=== PATIENT | male | born 1985 | race African-American/Black ===

== ENCOUNTER 2025-08-25 01:57 | Inpatient (IN) | payer OTHER, SELFPAY ==
[2025-08-24 23:00] VITALS: BMI 24.4
[2025-08-24 23:01] VITALS: BP 175/107
[2025-08-24 23:05] VITALS: BP 163/105
[2025-08-24] MEDS: NSS 1000 IV (23:23)
[2025-08-24 23:30] LABS: Hematocrit 32.5 % (39.0-52.0); Hemoglobin 9.9 g/dL (13.0-18.0); Mean Corp Hgb Conc. 30.5 g/dL (33.0-37.0); Mean Corpuscular Volume 79.7 fL (80.0-94.0); Platelet Count 309 10^3/uL (130-400); Red Cell Dist. Width 15.9 % (11.5-14.5)
[2025-08-24 23:32] LABS: INR 1.30; PT 16.3 Sec (11.4-14.6)
[2025-08-24 23:40] LABS: B.E. 8.2 mmol/L; HCO3 34.5 mmol/L (21-28); O2 Saturation % 98.4 % (94-98); PCO2 57 mmHg (35-48); PO2 85 mmHg (83-108)
[2025-08-24 23:43] LABS: COVID-19 Antigen Negative (Negative)
[2025-08-24 23:50] LABS: ALT (SGPT) 15 U/L (0-50); AST (SGOT) 25 U/L (17-59); Albumin 4.1 g/dl (3.5-5.0); Alkaline Phosphatase 79 U/L (38-126); Blood Urea Nitrogen 18 mg/dl (9-20); Calcium 8.8 mg/dl (8.4-10.2); Carbon Dioxide 33 mmol/L (22-30); Chloride 94 mmol/L (98-107); Estimated Creatinine Clearance 80 ml/min; Glucose 113 mg/dl (70-99); Potassium 4.3 mmol/L (3.5-5.1); Sodium 135 mmol/L (135-145); Total Protein 7.6 g/dl (6.3-8.2); eGFR > 60.00
[2025-08-25] VITALS (8 sets, daily range): BP systolic 145–171; BP diastolic 86–111; PULSE 99; O2SAT 96; BMI 23.7
[2025-08-25 00:04] LABS: Troponin I 0.036 ng/ml
[2025-08-25 00:14] LABS: Absolute Neutrophils -Man Diff 12.0 10^3/uL (1.4-6.5); Platelets Checked Yes
[2025-08-25 00:15] LABS: Normal RBC Morphology Yes
[2025-08-25 00:17] LABS: Total Cells Counted 100
--- NOTE | 2025-08-25 00:49 | ED.GENMED ---
History of Present Illness
General
Chief Complaint: Breathing Problem
Source: patient, ambulance crew and police
Exam Limitations: clinical condition
Time Seen by Provider: 08/24/25 22:48
Nursing documentation reviewed up to this point in time: agreed with
History of Present Illness
History of Present Illness:
Note:
CHIEF COMPLAINT(S)
Shortness of breath.
HISTORY OF PRESENT ILLNESS
The patient is a 40-year-old male who presents with acute onset shortness of breath and symptoms consistent with a cold. He states, 'I cant breathe' and reports feeling short of breath more prominently when lying down but experiences some relief
upon sitting up. The patient also reports a new onset fever today. He describes a sensation of heaviness in his chest when supine, impacting his ability to breathe comfortably. The patient mentions that these symptoms began today, and this is his
first experience of such symptoms. He denies any prior history of congestive heart failure.
SOCIAL HISTORY
The patient admits to smoking intermittently and states, 'I just started dying,' suggestive of intensified or resumed smoking habit recently.
PHYSICAL EXAM
General: Alert, appears in mild distress due to breathing difficulty.
Skin: Warm, dry.
Head: Normocephalic, atraumatic.
Neck: Supple, trachea midline.
Ear Ears, Nose, Mouth, and Throat: Oral mucosa moist.
Cardiovascular: Normal peripheral perfusion, no edema.
Respiratory: Breathing appears labored, and the patient reports shortness of breath especially in supine position.
Gastrointestinal: Abdomen nondistended.
Back: Normal range of motion, normal alignment.
Musculoskeletal: Normal range of motion, normal strength.
Neurological: Alert and oriented to person, place, time, and situation, no focal neurological deficit observed.
Psychiatric: Cooperative, appropriate mood and affect.
PLAN
- Administer breathing treatment to alleviate dyspnea.
- Conduct blood work to assess potential underlying causes.
- Arrange for a computed tomography (CT) scan of the chest to evaluate for possible respiratory pathology.
DIFFERENTIAL DIAGNOSIS
The Differential Diagnosis includes, in no particular order and is not limited to:
- Acute bronchitis
- Pneumonia
- Chronic obstructive pulmonary disease exacerbation
- Pulmonary embolism
- Asthma exacerbation
- Congestive heart failure (although the patient denies a history)
- Pleural effusion
- Pneumothorax
- Viral upper respiratory infection
- Hypersensitivity pneumonitis
Disposition:
SUMMARY OF ENCOUNTER
The patient, a 40-year-old male, was brought in by [employer] after being arraigned for a shoplifting charge. Upon arrival at the longterm, he was found to be hypoxic, with an oxygen saturation below 80% on room air, prompting the [facility] nurses
recommendation for hospital evaluation. Upon arrival at the emergency department, the patients oxygen saturation was improved to 96% with two liters of supplemental oxygen. The patient presented with a low-grade fever, expiratory wheezes, and
clubbed hands. He has a history of smoking, having quit for six years before recently resuming. A CT pulmonary embolism study was conducted, showing tree-in-bud patterns, centrilobular nodular and confluent opacities throughout the lower half of the
lungs, most prominently in the bilateral lower lobes, and findings consistent with multilobar pneumonia or aspiration. No pulmonary embolism was observed. The patient was admitted to the hospitalist service, initiated on antibiotics with Unasyn
(ampicillin/sulbactam), and provided fluids. Coordination with legal authorities is underway to potentially release the patient on his own recognizance during his hospital stay.
DISPOSITION
Admit to the hospitalist service.
ASSESSMENT
The patient presents with severe hypoxia likely due to multilobar pneumonia or aspiration. Other findings include expiratory wheezes and a history of smoking, suggesting possible chronic respiratory conditions.
EMERGENCY TREATMENTS ADMINISTERED
Supplemental oxygen therapy.
PLAN
Admit to the hospitalist service for further management and monitoring. Continue antibiotic therapy with Unasyn and provide supportive care, including fluids.
INDEPENDENT REVIEW OF LABS AND INTERPRETATION OF TESTS
My independent interpretation of the CT pulmonary embolism study shows tree-in-bud patterns, centrilobular nodular and confluent opacities throughout the lower lungs, most notably in the bilateral lower lobes, indicating multilobar pneumonia or
possible aspiration. No evidence of pulmonary embolism was detected.
MEDICATION RECONCILIATION
Unasyn (ampicillin/sulbactam) started for antibiotic therapy.
MEDICAL DECISION MAKING
-Complexity of Data Reviewed:
Chronic conditions affecting care include a history of intermittent smoking. Differential diagnosis includes acute bronchitis, pneumonia, chronic obstructive pulmonary disease exacerbation, pulmonary embolism, asthma exacerbation, congestive heart
failure, pleural effusion, pneumothorax, viral upper respiratory infection, hypersensitivity pneumonitis.
-Data:
Category 1:
CT pulmonary embolism study conducted and independently interpreted, revealing multilobar pneumonia or aspiration findings.
-Risk:
The admission decision is based on the need for escalation of care due to the patients severe hypoxia and pneumonia findings.
DIAGNOSIS
- Multilobar pneumonia, unspecified organism (J18.9)
- Acute hypoxia (R09.02)
Phy Exam
Physical Exam
Physical Exam:
.
Sepsis
Sepsis Screening
Sepsis Assessment: Sepsis
Sepsis Screen
Sepsis Screen: Sepsis
Date: 08/25/25
Time: 00:59
Course
Orders/Labs/Results
Orders:
Orders
08/24/25 23:03
Cardiac Monitoring- Treatment ONCE
0.9% Sodium Chloride 1000 ml [Nss] 1,000 ml IV BOLUS
08/24/25 23:04
Electrocardiogram (*1) Stat
Reason for Study: Other
Other Reason for Exam: pneumonia
EKG- Treatment ONCE
08/24/25 23:13
Lactic Acid Q4H
Comment: CANCEL 2nd LACTIC ACID IF 1st LACTIC ACID IS LESS THAN 2
08/24/25 23:14
COVID-19 Antigen Urgent
Source: Nasal Swab
Complete Blood Count/With Diff Urgent
Comprehensive Metabolic Panel Urgent
Manual Differential Urgent
NT-proBNP Urgent
Prothrombin Time Urgent
Troponin I Urgent
Blood Culture Q30M
KAY Source: Blood/Venous
Specimen Description:
Blood Culture Q30M
KAY Source: Blood/Venous
Specimen Description:
Influenza A+B Rapid Molecular Urgent
KAY Source: Nasal Swab
Specimen Description:
08/24/25 23:32
Arterial Blood Gas Urgent
%Oxygen/Room Air: 2l
08/25/25 00:00
CT Chest PE Study Urgent
Reason For Exam: dyspnea/tachycardia
Abnormal Lab Results
08/24/25 08/24/25
23:14 23:32
WBC 15.2 H 10^3/uL
(4.8-10.8)
RBC 4.08 L 10^6/uL
(4.70-6.10)
Hgb 9.9 L g/dL
(13.0-18.0)
Hct 32.5 L %
(39.0-52.0)
MCV 79.7 L fL
(80.0-94.0)
MCH 24.3 L pg
(27.0-31.0)
MCHC 30.5 L g/dL
(33.0-37.0)
RDW 15.9 H %
(11.5-14.5)
Abs Neuts (Manual) 12.0 H 10^3/uL
(1.4-6.5)
Band Neutrophils 15 H %
(0-3)
Lymphocytes (Manual) 10 L %
(20-51)
PT 16.3 H Sec
(11.4-14.6)
pCO2 57 H mmHg
(35-48)
HCO3 34.5 H mmol/L
(21-28)
ABG O2 Sat (Measured) 98.4 H %
(94-98)
Chloride 94 L mmol/L
(98-107)
Carbon Dioxide 33 H mmol/L
(22-30)
Glucose 113 H mg/dl
(70-99)
Troponin I 0.036 H* ng/ml
08/24/25 23:14
08/24/25 23:14
Vital Signs
Initial and Last Documented VS:
Initial Vital Signs
Pulse Resp Pulse Ox
119 12 91
08/24/25 22:59 08/24/25 22:59 08/24/25 22:59
Last Documented Vital Signs
Temp Pulse Resp BP Pulse Ox
100.5 F H 115 13 161/108 97
08/24/25 23:01 08/25/25 00:15 08/25/25 00:15 08/25/25 00:11 08/25/25 00:15
*Pulse Oximetry
SaO2: 97
Oxygen Mode of Delivery: Room air
Patient hypoxic: no
*Critical Care Note
Total Time (30-74mins, 75-104mins- exclusive of procedures): 33 (Critical care statement: A total of 33 minutes of critical care time was provided for this patient. This time is separate from time utilized to perform the aforementioned documented
procedures. Aggregate critical care time includes only time during which I was engaged in work directl)
Update Note
Update Note:
NAME: SARAH UNGER
DATE OF EXAM: 08/25/2025
Patient No: [id number]
Physician: DANICA
Date of : 1985
Past Medical History (entered by Technologist):
Reason For Exam (entered by Technologist):
Other Notes (entered by Technologist): Low pulse ox. On arrival, pt states that he can't breathe, pt on room air, SaO2 81% on room air
No prior
Additional Information (per [facility] Radiologist):
CT chest with IV contrast, angiogram
IMPRESSION:
Extensive tree-in-bud and centrilobular nodular and confluent opacities throughout the lower half of the lungs, most prominent in bilateral lower lobes, reflecting multilobar pneumonia or aspiration. Right middle lobe bronchiectasis. Diffuse
bronchial wall thickening with scattered areas of mucous plugging especially in the lower lobes and lingula.
Mildly enlarged reactive mediastinal and hilar lymph nodes.
Motion artifact limits evaluation of mid distal segmental and subsegmental pulmonary arteries especially in the lower lungs. Cannot exclude PE at those levels. No central, lobar, or gross segmental PE.
No aortic dissection.
Case finalized on 08/25/25 00:19 EST
Soniod Mendoza MD
This report has been electronically signed and verified by the Radiologist whose name is printed above.
ED Attending Note
-
Portions of this chart may have been created with voice recognition software.� Occasional wrong word or��sound alike� substitutions may have occurred due to the inherent limitations of voice recognition software.
Discharge Plan
Departure
Patient Disposition: Admit
Date of Disposition: 08/25/25
Time of Disposition: 00:56
Admit to: ICU
Presentation/result/management discussed w/ accepting MD/DO: Hospitalist
Discharge Problem:
Multilobar pneumonia, Elevated troponin, Health examination of prisoner
Referrals:
[facility] [Family Provider, General]
Interventions
Interventions:
*Risk Screen - Suicide Last Done: 08/24/25 23:00
*General Assessment Last Done: 08/24/25 23:01
*Neglect/Abuse Screening Last Done: 08/24/25 23:00
*ED COVID-19 Vaccine History Last Done: 08/24/25 23:01
*ED Influenza Vaccine History Last Done: 08/24/25 23:05
Discharge Date and Time
Print Language: GABONESE
--- NOTE | 2025-08-25 01:03 | HPS.HSE ---
Family Physician
-
Family Physician: Facility [facility]
Chief Complaint
-
Trouble breathing
History of Present Illness
This is a 40-year-old homeless male was brought in by police for complaint of shortness of breath and hypoxia during intake to longterm.
Patient is somewhat lethargic at the time of my interview but was able to provide my no history. The police said that the patient was being written for a minor attempt. At around 8 PM they blocked him and they then found that he was complaining of
shortness of breath. They checked his oxygen and he was also hypoxic so he was brought to the emergency department. Patient was alert and oriented and speaking with him during the initial evaluation.
Patient told me that he had been coughing and feeling short of breath for about 1 day. Is currently homeless and he says he is originally from the [place]. He has a history of for opioid dependence and says that he takes methadone 70 mg daily which
he obtains from clinic but he has not taken the methadone since Monday. He denies any abdominal pain nausea or vomiting. He is a regular smoker but denies no history of asthma or COPD.
In the emergency department he was febrile 200.5, blood pressure was 160/100 with a pulse rate of 115 and he was satting currently 100% on 3 L.
ECG shows sinus tach at a rate of 110. No acute ST or T wave changes. Troponin was 0.036.
CBC shows a white count of 15.2, hemoglobin of 9.9 platelet of 300. His electrolytes with mostly unremarkable but bicarb was elevated at 33, BUN and creatinine were stable and normal.
A CT PE was negative for PE but did show extensive tree-in-bud and centrilobular nodular and confluent opacities throughout the lower half of the lungs, most prominent in the bilateral lower lobes reflecting multilobar pneumonia or aspiration.
Right lower lobe bronchiectasis. Diffuse bronchial wall thickening with scattered areas of mucous plugging especially in the lower lobes and lingula. COVID/FLU negative.
Medical History
Past Medical History
Past Medical History: Reports None and Other (Opioid dependence currently on maintenance methadone)
Past Surgical History: Reports None
Social History
Tobacco: Smoker
Alcohol: Occasional
Drug: Former User
Living: Homeless
Family History
Family History: Not pertinent
Allergies / Home Medications
Allergies reflects when Allergies were last updated in [employer].
Home Medications with original date entered in [employer]
Allergy/Medication List:
Allergies
Allergy/AdvReac Type Severity Reaction Status Date / Time
Fish Containing Products Allergy Hives Verified 08/24/25 23:17
peanut Allergy Hives Verified 08/24/25 23:17
Methadone 70 mg tablets, 70 mg p.o. daily
Review of Systems
-
Constitutional: Reports Fever
EENT: Reports No Symptoms
Respiratory: Reports Cough and Trouble Breathing
Cardiac: Reports No Symptoms
Abdomen/GI: Reports No Symptoms
: Reports No Symptoms
Musculoskeletal: Reports No Symptoms
Skin: Reports No Symptoms
Neurological: Reports No Symptoms
Endocrine: Reports No Symptoms
Hematologic/Lymphatic: Reports No Symptoms
Psych: Reports No Symptoms
Physical Exam
Vital Signs
Vital Signs
Temp Pulse Resp BP Pulse Ox
100.5 F H 115 13 161/108 97
08/24/25 23:01 08/25/25 00:15 08/25/25 00:15 08/25/25 00:11 08/25/25 00:49
Physical Exam
General: Well Developed, Well Nourished and No Apparent Distress
HEENT: NormoCephalic, Moist mucous membranes and Atraumatic
Respiratory: Rales
Cardiac: S1/S2 and Regular Rhythm; No Murmur or Rub
GI: Soft, Non Tender, Non Distended and Normal Bowel Sounds; No Organomegaly
Rectal: Deferred by Provider
Musculoskeletal: No Clubbing, No Cyanosis and No Edema
Skin: No Rash
Neuro: AO x 3 and Nonfocal/grossly intact
Psych: Calm
Laboratory Results
-
08/24/25 23:14
08/24/25 23:14
Laboratory Results
PT 16.3 Sec (11.4-14.6) H 08/24/25 23:14
INR 1.30 08/24/25 23:14
pH 7.39 (7.35-7.45) 08/24/25 23:32
pCO2 57 mmHg (35-48) H 08/24/25 23:32
pO2 85 mmHg (83-108) 08/24/25 23:32
HCO3 34.5 mmol/L (21-28) H 08/24/25 23:32
Lactic Acid Cancelled 08/25/25 03:15
Total Bilirubin 0.5 mg/dl (0.2-1.3) 08/24/25 23:14
AST 25 U/L (17-59) 08/24/25 23:14
ALT 15 U/L (0-50) 08/24/25 23:14
Alkaline Phosphatase 79 U/L (38-126) 08/24/25 23:14
Troponin I 0.036 ng/ml H* 08/24/25 23:14
Data Reviewed
-
CT Scan: Report Reviewed by me
Medical Tests (Nuc Med, Echo, EKG etc): Image Personally Visualized and interpreted
Lab Data: Labs Reviewed by me
Old Records: Reviewed
Impression/Plan
-
IMPRESSION:
40-year-old homeless male, brought in from longterm during intake as he was found to be hypoxic, febrile. Hypoxia to 80s on RA. CT PE negative for PE but shows extensive multifocal pna mostly at the bilateral bases. HD stable. Leukocytosis to 15.
Smoker and former opioid dependence stating he is on methadone 70 daily. Currently somnolent but easily aroused. Has a degree of CO2 retention likely 2/2 undiagnosed COPD based on the blood gas and serum bicarb.
PLAN:
Pneumonia - Multifocal pneumonia,
- admit to telemetry
- blood cultures
- COVID/FLU are negative
- check urinary legionella ag, pneumococcal ag
- Will cover with azithromycin and ceftriaxone for now
- supportive oxygenation
- incentive spirometry
- antitussives
Troponin elevation - No chest pain, suspect hypoxia induced NIMI.
- telemetry
- trend trops
- check drug screen
- echo
COPD - Suspected COPD
- start nebs [id number] and prn
- no active wheezing or increased wob so will hold off on steroids for now
Drug dependence
- urine tox screen
- need to verify methadone use (gets methadone from clinic in [place])
Homeless - currently in police custody but i'm instructed patient will be released and can be discharged on own recognizance
DVT PPX - lovenox sq
Code status - Full Code
[2025-08-25] MEDS: DUONEB 3 ML INH ×4 (01:22→19:58)
[2025-08-25] MEDS: UNASYN IV (01:22)
[2025-08-25] MEDS: NSS 1000 IV (03:31)
--- NOTE | 2025-08-25 03:40 | PTCARENOTE ---
Recieved pt from ED. Pt. ambulated from stretcher to bed. temp 99.7 HR 112 Resp 20 BP 145/102 PO 96% on 3L. Pt oriented to unit and call reyes placed within reach. Pt. care ongoing.
[2025-08-25] MEDS: ZITHROMAX INFUSION 250 IV (04:06)
[2025-08-25] MEDS: ROCEPHIN 2000 MG IV (05:01)
[2025-08-25] MEDS: STERILE WATER FOR INJECTION 20 ML IV (05:01)
[2025-08-25] MEDS: DUONEB INH (07:33)
[2025-08-25 10:00] LABS: Hematocrit 30.2 % (39.0-52.0); Hemoglobin 8.9 g/dL (13.0-18.0); Mean Corp Hgb Conc. 29.5 g/dL (33.0-37.0); Mean Corpuscular Volume 81.8 fL (80.0-94.0); Platelet Count 261 10^3/uL (130-400); Red Cell Dist. Width 15.9 % (11.5-14.5)
--- NOTE | 2025-08-25 10:22 | W.PN.HOSP.TC ---
Today's Communication/Plan
-
Continue antibiotics
Add steroids
Continue inhalers
Assessment / Plan
Assessment / Plan
Gen-AAOx3, NAD
HEENT-NC, AT, anicteric, clear oral mm
Neck-supple
CV-reg, no M, +S1/S2
Lungs-decreased breath sounds bilaterally with wheezing
Abd-soft, NT, ND
Ext-no edema
Musculoskeletal-no cyanosis, clubbing
Skin-warm and dry
Neuro-grossly non-focal
Psych-calm, cooperative
Acute hypoxic respiratory failure -due to pneumonia and COPD exacerbation. Currently on 3 L nasal cannula oxygen.
Sepsis due to community-acquired pneumonia -sepsis with end-organ dysfunction characterized by hypoxic respiratory failure requiring oxygen therapy. Sepsis present on admission. Blood cultures pending.
Continue ceftriaxone, azithromycin.
WBCs trending down.
Community-acquired pneumonia -CT chest notes bilateral mid to lower lobe infiltrates. Risk factors for pneumonia include homelessness, drug abuse history.
Given wheezing, will treat for COPD exacerbation. Add prednisone, continue inhalers.
Hypercapnia noted on ABG with compensatory metabolic alkalosis.
COVID and influenza negative.
Troponin elevation -suspect acute nonischemic myocardial injury due to sepsis, commune acquired pneumonia. Repeat troponin pending.
Microcytic anemia -unknown acuity or etiology. Monitor for now.
Tobacco dependence -cessation advised.
History of drug abuse -on chronic methadone therapy. Will continue.
UDS positive for cocaine, fentanyl, and opiates.
Full code
Dispo -back to assisted when medically stable.
Anticipated Discharge: 24 - 48 hours
Subjective/Interval History
-
Date of Service: August 25, 2025
Patient seen and examined. No new complaints.
Objective Data
-
Labs:
Laboratory Results
08/24/25 08/24/25 08/25/25
23:14 23:32 09:52
WBC 15.2 H 11.7 H
Hgb 9.9 L 8.9 L
Hct 32.5 L 30.2 L
Plt Count 309 261
PT 16.3 H
INR 1.30
HCO3 34.5 H
Sodium 135 Pending
Potassium 4.3 Pending
Chloride 94 L Pending
Carbon Dioxide 33 H Pending
BUN 18 Pending
Creatinine 1.2 Pending
Glucose 113 H Pending
Calcium 8.8 Pending
Total Bilirubin 0.5
AST 25
ALT 15
Alkaline Phosphatase 79
Vital Signs:
Vital Signs
Temp Pulse Resp BP Pulse Ox
99.2 F 111 18 169/111 94
08/25/25 07:45 08/25/25 07:45 08/25/25 07:45 08/25/25 07:45 08/25/25 07:45
I&O
08/24/25 08/25/25 08/26/25
06:59 06:59 06:59
Intake Total 550 / 550
Output Total 550 / 550
Balance 0 / 0
Review of Systems
-
History Source: Patient
All other systems: Reviewed and negative
[2025-08-25 10:29] LABS: Troponin I < 0.012 ng/ml
[2025-08-25] MEDS: DELTASONE 40 MG PO (10:40)
[2025-08-25] MEDS: MUCINEX 600 MG PO ×2 (10:40→20:20)
[2025-08-25] MEDS: METHADONE 100 MG/10 ML 70 MG PO (10:41)
[2025-08-25 10:49] LABS: Blood Urea Nitrogen 18 mg/dl (9-20); Calcium 8.3 mg/dl (8.4-10.2); Carbon Dioxide 35 mmol/L (22-30); Chloride 96 mmol/L (98-107); Estimated Creatinine Clearance 96 ml/min; Glucose 112 mg/dl (70-99); HDL Cholesterol 33 mg/dl; LDL Cholesterol, Calculated 49 mg/dl; Potassium 3.9 mmol/L (3.5-5.1); Sodium 135 mmol/L (135-145); Very Low Density Lipoprotein 13 mg/dl (0-30); eGFR > 60.00
[2025-08-25 12:13] LABS: Glycohemoglobin (HgbA1c) 6.6 % (4.0-5.9)
--- NOTE | 2025-08-25 13:29 | CM ---
Guards at bedside. Patient is a 40-year-old homeless male was brought in by police for complaint of shortness of breath and hypoxia during intake to [facility]. History of drug abuse -on chronic methadone therapy.
Patient currently homeless, originally from the [place], [place]. Independent in all areas, no DME
Community acquired pneumonia. Was on 3L O2, now down to 1
Plan: Return to [facility]
[2025-08-25] MEDS: LOVENOX 40 MG SC (17:59)
[2025-08-26 03:00] VITALS: BP 148/103
[2025-08-26] MEDS: ROCEPHIN 2000 MG IV (05:42)
[2025-08-26] MEDS: STERILE WATER FOR INJECTION 20 ML IV (05:42)
[2025-08-26] MEDS: ZITHROMAX INFUSION 250 IV (05:43)
[2025-08-26] MEDS: DUONEB INH ×2 (07:51→15:00)
[2025-08-26] MEDS: DELTASONE 40 MG PO (08:16)
[2025-08-26] MEDS: METHADONE 100 MG/10 ML 70 MG PO (08:16)
[2025-08-26] MEDS: MUCINEX 600 MG PO (08:16)
[2025-08-26 10:26] LABS: Hematocrit 27.2 % (39.0-52.0); Hemoglobin 8.8 g/dL (13.0-18.0); Mean Corp Hgb Conc. 32.4 g/dL (33.0-37.0); Mean Corpuscular Volume 81.4 fL (80.0-94.0); Nucleated Red Blood Cells % 0 % (-); Platelet Count 292 10^3/uL (130-400); Red Cell Dist. Width 16.2 % (11.5-14.5)
--- NOTE | 2025-08-26 10:55 | W.PN.HOSP.TC ---
Today's Communication/Plan
-
Discharge
Assessment / Plan
Assessment / Plan
Gen-AAOx3, NAD
HEENT-NC, AT, anicteric, clear oral mm
Neck-supple
CV-reg, no M, +S1/S2
Lungs-clear bilaterally
Abd-soft, NT, ND
Ext-no edema
Musculoskeletal-no cyanosis, positive clubbing on both hands
Skin-warm and dry
Neuro-grossly non-focal
Psych-calm, cooperative
Acute hypoxic respiratory failure -due to pneumonia and COPD exacerbation. Oxygenation improved, now on room air. Denies shortness of breath.
Sepsis due to community-acquired pneumonia -sepsis with end-organ dysfunction characterized by hypoxic respiratory failure requiring oxygen therapy. Sepsis present on admission. Blood cultures negative so far.
Continue ceftriaxone, azithromycin.
WBCs now normal. Afebrile.
Community-acquired pneumonia -CT chest notes bilateral mid to lower lobe infiltrates. Risk factors for pneumonia include homelessness, drug abuse history.
Given wheezing, will treat for COPD exacerbation. Add prednisone, continue inhalers.
Hypercapnia noted on ABG with compensatory metabolic alkalosis. Suspect underlying chronic lung disease, COPD given ABG findings and clubbing.
COVID and influenza negative.
Troponin elevation -suspect acute nonischemic myocardial injury due to sepsis, commune acquired pneumonia. Repeat troponin normal.
Microcytic anemia -unknown acuity or etiology. Monitor for now.
Tobacco dependence -cessation advised.
History of drug abuse -on chronic methadone therapy. Will continue.
UDS positive for cocaine, fentanyl, and opiates.
Full code
Dispo -medically stable for discharge on oral antibiotics. He plans to go back to the [place], [place]. Will send prescriptions to [facility] in the [place]. Outpatient follow-up with PCP.
35 minutes spent in discharge process.
Anticipated Discharge: Today
Subjective/Interval History
-
Date of Service: August 26, 2025
Patient seen and examined. No complaints.
Objective Data
-
Labs:
Laboratory Results
08/26/25
10:12
WBC 8.7
Hgb 8.8 L
Hct 27.2 L
Plt Count 292
Vital Signs:
Vital Signs
Temp Pulse Resp BP Pulse Ox
98.8 F 102 16 148/103 94
08/26/25 03:00 08/26/25 07:52 08/26/25 07:52 08/26/25 03:00 08/26/25 07:52
I&O
08/25/25 08/26/25 08/27/25
06:59 06:59 06:59
Intake Total 550 / 550 500 / 500
Output Total 550 / 550 600 / 600
Balance 0 / 0 -100 / -100
Review of Systems
-
History Source: Patient
All other systems: Reviewed and negative
--- NOTE | 2025-08-26 11:07 | CM ---
Addendum entered by LUDA Gaston 08/26/25 17:11:
Patient did not want to go to [place]. PLan now to get Lycarolyn and he will go to [place], [place].
Addendum entered by LUDA Gaston 08/26/25 16:06:
Patient is upset he cannot get sent back to [place] where he goes for his methodone. He has no wallet, money. offered to call anyone, even his methadone clinic if they had a next of kin listed.
Addendum entered by LUDA Gaston 08/26/25 14:18:
Met with patient . He has no one he can call as he says he left cell phone in car of friend who he drove to [place] in to go to a [employer]. He states he has no way to contact anyone to pick him up and take him back to the [place]. Patient will need
written scripts to take with him to get filled. [facility] or [facility] . He can choose to get scripts filled at [facility] by Train station in [place] or get filled in [place]. Patient has clothing in hospital
room. RN made aware of plan and attending.
Original Note:
SPOKE to infirmiary patient was never at [facility] so he is to be discharged to wherever he has penitentiary. Attending asking for help to identify [facility] in [place], [place] where patient wants to go to.
[2025-08-26] MEDS: DUONEB 3 ML INH (11:51)
[2025-08-26 11:53] VITALS: BP 150/101
[2025-08-26] MEDS: PROCARDIA XL (EXTENDED RELEASE) 30 MG PO (12:30)
--- NOTE | 2025-08-26 13:59 | W.DS.TRANS ---
DC Summary - Compensation And Benefits Administrator
-
Discharge Instructions:
Discharge Diagnosis/Procedures Sepsis, pneumonia, anemia
Diet Regular
Activity As tolerated
Driving Restrictions As prior to admission
Bathing Restrictions None
Instructions:
Stand-Alone Forms:
Changes to Home Medications: No
Discharge Medications:
DC Medications w/original date entered in [employer]
amoxicillin 875 mg-potassium clavulanate 125 mg tablet 1 tab PO BID #10 tabs 08/26/25
guaifenesin 600 mg tablet, extended release 12 hr 600 mg PO Q12 #10 tabs 08/26/25
methadone 10 mg/mL oral concentrate (Methadose) 70 mg (7 mL) PO DAILY #0 mL 08/26/25
nifedipine 30 mg tablet,extended release 30 mg PO DAILY #30 tabs 08/26/25
prednisone 20 mg tablet 40 mg (2 x 20 mg) PO DAILY #6 tabs 08/26/25
Home Medication Changes
Pending Results: No
[2025-08-26 15:45] VITALS: BP 120/77
--- NOTE | 2025-08-26 16:35 | PTCARENOTE ---
Addendum entered by Jose Miguel Morocho RN 08/26/25 17:32:
Pt sent to [place] lounge where he will take a lyft to the train station to get him back home. pt agreeable to plan.
Original Note:
Pt discharged. Refusing to talk to me, or take DC papers. athletic coordinator, hospital supervisor aware
== END 2025-08-26 16:55 | disposition home or self-care (01) | DRG 871 ==
LOC: 4 WEST ACU 01:57
PROVIDERS: ADMITTING PHYSICIAN Internal Medicine; ATTENDING PHYSICIAN Hospitalist; EMERGENCY PHYSICIAN Student in an Organized Health Care Education/Training Program
DX: A41.9 Sepsis, unspecified organism (principal); J18.9 Pneumonia, unspecified organism; J96.01 Acute respiratory failure with hypoxia; Z59.00 Homelessness unspecified; F11.20 Opioid dependence, uncomplicated; I5A Non-ischemic myocardial injury (non-traumatic); E87.3 Alkalosis; J44.1 Chronic obstructive pulmonary disease with (acute) exacerbation; J44.0 Chronic obstructive pulmonary disease with (acute) lower respiratory infection; J47.0 Bronchiectasis with acute lower respiratory infection; R65.20 Severe sepsis without septic shock; F17.200 Nicotine dependence, unspecified, uncomplicated; D50.9 Iron deficiency anemia, unspecified; Z91.010 Allergy to peanuts; Z91.013 Allergy to seafood; Z65.3 Problems related to other legal circumstances; Z11.52 Encounter for screening for COVID-19
CPT/HCPCS: 71275; 80048; 80053; 80061; 80306; 80307; 82805; 83036; 83605; 83880; 84484; 85025; 85027; 85610; 87040; 87449; 87502; 87811; 87899; 93005; 93306; 94640; 96374; 97163; 99291; 99406; Q9967